=== PATIENT | male | born 1945 | race Caucasian/White ===

== ENCOUNTER 2024-03-16 11:55 | Emergency (ER) | payer OTHER, MEDICAID ==
[~2024-03-16] VITALS: Ht 175.3 cm; Wt 81.6 kg
[2024-03-16 12:01] VITALS: BP 122/78; PULSE 111; RESP 20; TEMP 97.3; O2SAT 98
[2024-03-16] MEDS: NITROGLYCERIN 2% 1 GM PKT TP ONE (12:46)
[2024-03-16] MEDS: NACL 0.9% 1,000 ML IV ONE (12:46)
[2024-03-16 12:48] LABS: BASOPHILS % (AUTO) 0.4 % (0.0-2.0); EOSINOPHILS % (AUTO) 0.8 % (0.0-4.0); HEMATOCRIT 48.1 % (36-52); HEMOGLOBIN 16.4 g/dL (12.0-18.0); LYMPHOCYTES # (AUTO) 1.2 K/uL (2.0-11.5); LYMPHOCYTES % (AUTO) 24.9 % (20.5-51.1); MEAN CORPUSCULAR HEMOGLOBIN 32 pg (27-31); MEAN CORPUSCULAR HGB CONC 34 g/dL (33-37); MEAN CORPUSCULAR VOLUME 93.1 fL (80-94); MONOCYTES # (AUTO) 0.9 K/uL (0.8-1.0); MONOCYTES % (AUTO) 19.9 % (1.7-9.3); NEUTROPHILS # (AUTO) 2.6 K/uL (1.8-7.7); PLATELET COUNT (AUTO) 246 K/uL (140-450); RED BLOOD CELL COUNT(AUTO) 5.17 MIL/uL (4.20-6.10); WHITE BLOOD COUNT (AUTO) 4.8 K/uL (4.8-10.8)
[2024-03-16 13:02] LABS: ANION GAP 16.3 (8-16); CALCIUM 8.8 mg/dL (8.5-10.1); CHLORIDE 106 mmol/L (98-107); CREATININE 1.2 mg/dL (0.6-1.3); GLUCOSE 132 mg/dL (74-106); POTASSIUM 3.3 mmol/L (3.5-5.1); SODIUM SERUM 143 mmol/L (136-145); UREA NITROGEN, BLOOD 23 mg/dL (7-18)
[2024-03-16 13:05] LABS: INR 1.05 (0.8-1.2); PARTIAL THROMBOPLASTIN TIME 26.5 secs (22-35.6)
[2024-03-16 13:19] LABS: ALANINE AMINOTRANSFERASE 18 U/L (12-78); ALBUMIN 3.6 g/dL (3.4-5.0); ALKALINE PHOSPHATASE 81 U/L (50-136); ASPARTATE AMINOTRANSFERASE 17 U/L (15-37); BILIRUBIN,DIRECT 0.2 mg/dL (0.0-0.3); LIPASE 27 U/L (16-77); TOTAL BILIRUBIN 0.6 mg/dL (0.0-1.0)
[2024-03-16 13:41] LABS: APPEARANCE,URINE CLEAR (CLEAR); BILIRUBIN,URINE 1+ (NEGATIVE); BLOOD, URINE 3+ (NEGATIVE); COLOR,URINE YELLOW (YELLOW); LEUKOCYTE ESTERASE ,URINE 1+ (NEGATIVE); NITRITE, URINE POSITIVE (NEGATIVE); PROTEIN,URINE 1+ (NEGATIVE); UGLUCOSE NEGATIVE (NEGATIVE)
[2024-03-16] MEDS ORDERED: VITB12 PO (13:42)
[2024-03-16] MEDS ORDERED: ATOR40TA40 PO (13:42)
[2024-03-16] MEDS ORDERED: COLC-30 PO (13:42)
[2024-03-16] MEDS ORDERED: TAMS0.4C96 PO (13:42)
[2024-03-16] MEDS ORDERED: NITR0.4T94 (13:42)
[2024-03-16] MEDS ORDERED: SOFO1TAB PO (13:42)
[2024-03-16] MEDS ORDERED: METF-346 PO (13:42)
[2024-03-16] MEDS ORDERED: CLOP75TA55 PO (13:42)
[2024-03-16] MEDS ORDERED: POLY17PD46 PO (13:42)
[2024-03-16] MEDS ORDERED: ACET-10509 PO (13:42)
[2024-03-16] MEDS ORDERED: NIFE-184 PO (13:42)
[2024-03-16] MEDS ORDERED: [UNRECOGNIZED DRUG - CODE] PO (13:42)
[2024-03-16] MEDS ORDERED: CLOP-68 PO (13:42)
[2024-03-16 14:01] LABS: RBC,URINE >20 (MANY) /HPF (0-5)
[2024-03-16 14:02] LABS: BACTERIA,URINE 4+ /HPF (None Seen); ICTOTEST NEGATIVE (NEGATIVE); SQUAMOUS EPITHELIAL CELL,UR 4-10 (MOD) /LPF (0-3 (FEW)); WBC,URINE >25 (MANY) /HPF (0-5)
[2024-03-16] MEDS ORDERED: LOPE-143 PO (14:14)
[2024-03-16] MEDS ORDERED: NITR100C7 PO (14:14)
[2024-03-16 14:26] VITALS: BP 134/76; PULSE 80; RESP 17; TEMP 97.3; O2SAT 94
[2024-03-16 14:28] LABS: BARBITURATE, URINE NEGATIVE ng/ml (NEG <=200)
[2024-03-16 14:29] LABS: COCAINE, URINE POSITIVE ng/mL (NEG <=300)
[2024-03-16 14:32] LABS: AMPHETAMINE, URINE NEGATIVE ng/ml (NEG <=1000); BENZODIAZEPINE, URINE NEGATIVE ng/mL (NEG <=200); CANNABINOID, URINE NEGATIVE ng/mL (NEG <=50); OPIATE, URINE NEGATIVE ng/mL (NEG <=2000); PHENCYCLIDINE SCREEN,URINE NEGATIVE ng/mL (NEG <=25)
== END 2024-03-16 14:29 | disposition home or self-care (01) ==
LOC: MED 11:55
DX: N39.0 Urinary tract infection, site not specified (principal); R19.7 Diarrhea, unspecified; E86.0 Dehydration; R07.9 Chest pain, unspecified; I11.9 Hypertensive heart disease without heart failure; E11.9 Type 2 diabetes mellitus without complications; Z79.4 Long term (current) use of insulin; Z79.899 Other long term (current) drug therapy; Z90.49 Acquired absence of other specified parts of digestive tract; Z98.890 Other specified postprocedural states
CPT/HCPCS: 36415; 71045; 80048; 80076; 80305; 81001; 82948; 83690; 83880; 84484; 85025; 85610; 85730; 87086; 87186; 93005; 96360; 99285; J7030